=== PATIENT | female | born 1960 | race Two or more races ===

== ENCOUNTER 2016-11-19 17:53 | Emergency (ER) | payer OTHER ==
[2016-11-19 17:59] VITALS: BP 140/86; PULSE 116; TEMP 98.6; BMI 28.3
--- NOTE | 2016-11-19 20:01 | PDOC ---
History of Present Illness - General Chief Complaint: Pain Stated Complaint: HIP PAIN/BACK PAIN/BURNING SENSATION Time Seen by Provider: 11/19/16 19:21 History Source: Patient Exam Limitations: No Limitations - History of Present Illness Initial Comments: 11/19/16 19:[address] butt x 10 years post ?? type of butt injections bilat ; much worse x 4 months with itchy redness Timing/Duration: getting worse Severity: severe Associated Symptoms: reports: rash. denies: chest pain, cough, fever/chills, nausea/vomiting Past History - Past Medical History Allergies/Adverse Reactions: Allergies Allergy/AdvReac Type Severity Reaction Status Date / Time No Known Allergies Allergy Verified 11/19/16 17:59 Home Medications: Ambulatory Orders NK [No Known Home Medication] 11/19/16 Asthma: Yes (takes advair/albuterol) Kidney Stones: Yes - Psycho/Social/Smoking Cessation Hx Suicidal Ideation: No Smoking Status: No Smoking History: Never smoked Number of Cigarettes Smoked Daily: 0 Hx Alcohol Use: No Drug/Substance Use Hx: No Substance Use Type: None Review of Systems - Review of Systems Constitutional: No: Chills, Fever, Malaise HEENTM: No: Symptoms Reported Respiratory: Yes: Symptoms reported. No: Cough Cardiac (ROS): No: Symptoms Reported ABD/GI: Yes: Symptoms Reported : Yes: Symptoms Reported Musculoskeletal: Yes: Symptoms Reported Integumentary: Yes: Symptoms Reported Neurological: Yes: Symptoms reported Endocrine: Yes: Symptoms Reported Hematologic/Lymphatic: No: Symptoms Reported *Physical Exam - Vital Signs Last Vital Signs Temp Pulse Resp BP Pulse Ox 98.6 F 116 H 20 140/86 97 11/19/16 17:55 11/19/16 17:55 11/19/16 17:55 11/19/16 17:55 11/19/16 17:55 - Physical Exam General Appearance: Yes: Appropriately Dressed. No: Apparent Distress HEENT: positive: TMs Normal, Pharynx Normal Neck: positive: Supple. negative: Tender, Rigid Respiratory/Chest: positive: Lungs Clear, Normal Breath Sounds, Respiratory Distress. negative: Chest Tender Cardiovascular: positive: Regular Rhythm, Regular Rate. negative: Murmur ED Treatment Course - RADIOLOGY Radiology Studies Ordered: Category Date Time Status SOFT TISSUE CHEST AND BACK US [US] Stat Ultrasound 11/19/16 19:54 Ordered Medical Decision Making - Medical Decision Making 11/19/16 19:59 endorsed to BELKYS Sorto for follow up post labs and US *DC/Admit/Observation/Transfer Diagnosis at time of Disposition: Soft tissue mass
[2016-11-19 20:05] LABS: BASOPHIL 0.5 % (0-2.0); EOSINOPHIL 3.5 % (0-4.5); MCHC 33.8 g/dl (32.0-36.0); MEAN CELL VOLUME 85.8 fl (80-96); MEAN PLT VOLUME 7.6 fl (7.5-11.1); NEUTROPHILS 54.6 % (42.8-82.8); PLATELET COUNT 228 K/MM3 (134-434); RDW 13.4 % (11.6-15.6); WHITE BLOOD COUNT 6.7 K/mm3 (4.0-10.0)
[2016-11-19 20:35] LABS: CALCIUM 8.5 mg/dL (8.5-10.1); CREATININE 0.7 mg/dL (0.55-1.02)
--- NOTE | 2016-11-19 21:08 | PDOC ---
*Physical Exam - Vital Signs Last Vital Signs Temp Pulse Resp BP Pulse Ox 98.6 F 116 H 20 140/86 97 11/19/16 17:55 11/19/16 17:55 11/19/16 17:55 11/19/16 17:55 11/19/16 17:55 11/19/16 21:07 - Physical Exam Comments: 11/19/16 21:04 She was endorsed to me by Kayode Espinoza CLINICAL NURSING ASSISTANT pending ultrasound of buttocks to rule out fluid or abscess, CMP and CBC with differential pending Chief complaint: Itchy painful reddened raised area on bilateral buttocks 4 month History of present illness: Patient is a 56-year-old female with h/o renal calculi today complaining of it she burning painful raised reddened skin to bilateral buttocks 4 months. Reports that 10 years ago she saw a doctor in [place] that gave her injections in her buttocks to resolve the kidney stones. Patient's small her primary care provider a few months ago Dr. Symone Louis and was referred to see a plastic surgeon for these symptoms however plastic surgeon referred her to see a skilled nursing facility counselor. Patient did not get to see the skilled nursing facility counselor. Patient reports that 2 days ago she had chills. Patient denies any fever. Patient denies adamantly that she ever had injections in her buttocks to enlarge it. Patient said that she tried to return to the doctor in [place] that did her injections in her buttocks at one time however office was closed. 11/19/16 21:07 11/19/16 21:08 11/19/16 21:08 General Appearance: Yes: Appropriately Dressed Respiratory/Chest: positive: Lungs Clear, Normal Breath Sounds. negative: Chest Tender, Respiratory Distress Cardiovascular: positive: Regular Rhythm, Regular Rate, S1, S2 Integumentary: positive: Erythema (raised skin warm to touch confluent over entire b/l buttock extends to upper lateral thighs ) Neurologic: positive: Normal Response, Responsive ED Treatment Course - LABORATORY CBC & Chemistry Diagram: 11/19/16 20:00 11/19/16 20:00 - ADDITIONAL ORDERS Additional order review: Laboratory Results 11/19/16 20:00 Sodium 142 Potassium 4.5 D Chloride 106 Carbon Dioxide 28 Anion Gap 8 BUN 19 H Creatinine 0.7 Random Glucose 109 H D Calcium 8.5 11/19/16 20:00 RBC 4.48 MCV 85.8 MCHC 33.8 RDW 13.4 MPV 7.6 Neutrophils % 54.6 Lymphocytes % 34.0 Monocytes % 7.4 Eosinophils % 3.5 Basophils % 0.5 - Medications Given in the ED: ED Medications Discontinued Medications Generic Name Dose Route Start Last Admin Trade Name Evelina PRN Reason Stop Dose Admin Diphenhydramine HCl 50 mg 11/19/16 19:53 11/19/16 20:06 Benadryl Injection - IM 11/19/16 19:54 50 mg ONCE ONE Administration Medical Decision Making - Medical Decision Making 11/19/16 21:08 Patient is a 56-year-old female with h/o renal calculi today complaining of it she burning painful raised reddened skin to bilateral buttocks 4 months. Reports that 10 years ago she saw a doctor in [place] that gave her injections in her buttocks to resolve the kidney stones. Patient's small her primary care provider a few months ago Dr. Symone Louis and was referred to see a plastic surgeon for these symptoms however plastic surgeon referred her to see a skilled nursing facility counselor. Patient did not get to see the skilled nursing facility counselor. Patient reports that 2 days ago she had chills. Patient denies any fever. Patient denies adamantly that she ever had injections in her buttocks to enlarge it. Patient said that she tried to return to the doctor in [place] that did her injections in her buttocks at one time however office was closed. Laboratory Tests 11/19/16 11/19/16 20:00 20:00 WBC 6.7 RBC 4.48 Hgb 13.0 Hct 38.5 MCV 85.8 MCHC 33.8 RDW 13.4 Plt Count 228 MPV 7.6 Neutrophils % 54.6 Lymphocytes % 34.0 Monocytes % 7.4 Eosinophils % 3.5 Basophils % 0.5 Sodium 142 Potassium 4.5 D Chloride 106 Carbon Dioxide 28 Anion Gap 8 BUN 19 H Creatinine 0.7 Random Glucose 109 H D Calcium 8.5 11/19/16 21:08 raised skin on entire b/l buttock confluent painful/ burning Review does not appear to be infectious there is no elevated white count. We'll have patient follow up with skilled nursing facility counselor for further evaluation with Dr. Morel [phone] 11/19/16 22:23 *DC/Admit/Observation/Transfer Diagnosis at time of Disposition: Soft tissue mass - Discharge Dispostion Disposition: HOME Condition at time of disposition: Stable - Referrals Referrals: Symone Bowens MD [Primary Care Provider] - - Patient Instructions Additional Instructions: Follow-up with skilled nursing facility counselor Dr. Morel at [phone] this week Return to emergency room if any fever or increased redness of area on buttocks. Avoid putting any creams or lotions on buttocks Follow-up with your primary care provider next week also Patient voiced understanding of discharge instructions and all questions were answered - Post Discharge Activity
== END 2016-11-19 22:33 | disposition home or self-care (01) ==
LOC: JERFT 17:53
PROC: 3E023GC Introduction of Other Therapeutic Substance into Muscle, Percutaneous Approach (ICD-10-PCS; principal; 2016-11-19)
DX: R22.2 Localized swelling, mass and lump, trunk (principal)
CPT/HCPCS: 36415; 76604; 80048; 85025; 96372; 99281-25

== ENCOUNTER 2018-04-04 08:19 | Day surgery (SDC) | payer OTHER ==
[2018-04-03 15:26] VITALS: BMI 28.3
[2018-04-04 08:59] LABS: URINE APPEARANCE SLCLOUDY; URINE BILIRUBIN NEGATIVE (<2.0 mg/dL); URINE COLOR YELLOW; URINE GLUCOSE (UA) NEGATIVE (NEGATIVE); URINE KETONE NEGATIVE (NEGATIVE); URINE LEUK ESTERASE NEGATIVE (NEGATIVE); URINE NITRITE NEGATIVE (NEGATIVE); URINE PROTEIN NEGATIVE (NEGATIVE)
--- NOTE | 2018-04-04 09:15 | HP ---
Satellite [facility] - Chief Complaint Chief Complaint: right hand pain - Past Medical History Allergies/Adverse Reactions: Allergies Allergy/AdvReac Type Severity Reaction Status Date / Time No Known Allergies Allergy Verified 11/19/16 17:59 - Current Medications Current Medications: Home Medications Medication Instructions Recorded Hydrochlorothiazide [Hctz -] 12.5 mg PO DAILY 04/03/18 Omeprazole 20 mg PO HS 04/03/18 Hydrocodone/Acetaminophen [[place] 1 each PO Q6H PRN #20 tablet MDD 4 04/04/18 5-325 Tablet] Satellite Physical Exam - Physical Examination Vital Signs: Vital Signs Period Temp Pulse Resp BP Sys/Demarco Pulse Ox Last 24 Hr 98.3 F 87 20 126/69 General Appearance: Well Nourished, Well Developed, Alert & Oriented x3 ENT: Clear Lung: Normal air movement Heart: Regular rate & rhythm Extremities: Other (right hand- + tinels, + phalens, + ttp index a1 babita, nvi EMG + cts) Neurological: Intact, Alert, Oriented Satellite Impression/Plan - Impression/Plan Impression: right cts, right index trigger finger Operative Procedure: right ctr, right index trigger release Date to be Performed: 04/04/18
[2018-04-04 09:20] LABS: INR 1.01 (0.82-1.09); PROTHROMBIN TIME (PATIENT) 11.4 SEC (9.7-13.0)
[2018-04-04 09:23] LABS: ACTIVATED PTT 28.8 SECONDS (26.9-34.4)
[2018-04-04] MEDS ORDERED: ceFAZolin SODIUM 1 GM VIAL IVPB ONE (10:30)
[2018-04-04] MEDS ORDERED: LIDOCAINE HCL 1%, 10 MG/ML (20ML VIAL) INF ONE (10:38)
[2018-04-04] MEDS ORDERED: BUPIVACAINE HCL/PF 0.5% (5MG/ML) 10 ML VIAL IJ ONE (10:38)
--- NOTE | 2018-04-04 12:40 | OP ---
Operative Note - Note: Operative Date: 04/04/18 Pre-Operative Diagnosis: right CTS, index trigger finger Operation: right CTR, index trigger release, tenosynovectomy Post-Operative Diagnosis: Same as Pre-op Surgeon: Glenn Plummer Anesthesiologist/CRIMINOLOGY TEACHER: Meagn Prince Anesthesia: Local, MAC Specimens Removed: tenosynovium Estimated Blood Loss (mls): 0 Drains, Volume Out (mls): 0 Blood Volume Replaced (mls): 0 Fluid Volume Replaced (mls): 500 Operative Report Dictated: Yes
[2018-04-04] MEDS ORDERED: ONDANSETRON 4 MG/2 ML VIAL IVPUSH PRN (12:50)
[2018-04-04] MEDS ORDERED: oxyCODONE HCL 5 MG TABLET PO PRN (12:50)
[2018-04-04 12:59] VITALS: TEMP 98
[2018-04-04] MEDS ORDERED: LACTATED RINGERS SOLUTION 1,000 ML IV SCH (13:00)
[2018-04-04 13:58] VITALS: BP 101/60; PULSE 88
--- NOTE | 2018-04-05 15:19 | SPEC ---
DATE OF OPERATION: 04/04/2018 PREOPERATIVE DIAGNOSIS: Right carpal tunnel syndrome and right index finger trigger finger. POSTOPERATIVE DIAGNOSIS: Right carpal tunnel syndrome and right index finger trigger finger. PROCEDURE: 1. Right carpal tunnel release and tenosynovectomy. 2. Right index finger trigger finger release. SURGEON: Glenn Plummer MD BLEACHER LARD: None. AMMUNITION SPECIALIST: Tracy Dodson CRNA ANESTHESIA: MAC anesthesia, local injection of 15 mL 0.5% Marcaine, 1% lidocaine mixed. DRAINS: None. COMPLICATIONS: None. SPECIMENS: Tenosynovium, right wrist. BLOOD LOSS: None. BLOOD GIVEN: None. FLUID REPLACEMENT: 500 mL Plasmalyte. INDICATION: The patient is a 57-year-old female with a preoperative diagnosis of severe right carpal tunnel syndrome and a severe right index finger trigger finger. After understanding the potential risks, complications, alternatives, and benefits of surgery versus nonsurgical treatment, the patient elected to undergo this procedure. Patient understands she may not get complete relief of her carpal tunnel syndrome symptoms including continuation of the numbness. DESCRIPTION OF PROCEDURE: CARPAL TUNNEL RELEASE: The patient was brought to the operating room, peripheral IV placed and intravenous sedation was given. One gram of intravenous Ancef was given. MAC anesthesia was induced. A tourniquet was applied to the right upper arm and the right upper extremity was prepped and draped in sterile fashion. The entire case was done under 3.8 loupe magnification. A marking pen was utilized to dawn out a longitudinal incision in an already existing skin crease. Twenty mL of 0.5% Marcaine mixed with 1% Lidocaine was injected in and around the surgical incision. The right upper extremity was elevated, exsanguinated with an Esmarch bandage and the tourniquet inflated to 250 mmHg. A No. 15 scalpel blade was utilized to cut down through the skin. Subcutaneous hemostasis was achieved with the bipolar cautery. Dissection was done through the superficial palmar fascia. Self-retaining retractors were placed into the wound. Under direct visualization, the transverse carpal ligament was transected with a No. 15 scalpel blade, exposing the median nerve and the contents of the carpal tunnel. The distal and proximal extents of the release were completed with a Littler scissor and checked with irrigation and my small finger. They were seen to be complete. Limited dissection was done on the radial side of the median nerve and more extensive dissection was done on the ulnar side of the median nerve. The patients nerve was seen to be quite compressed by epineurium and therefore a limited epineurotomy was performed. A Ragnell retractor was used to gently retract the median nerve in a radial direction. The patient had a lot of tenosynovitis and therefore a tenosynovectomy was performed off all 9 flexor tendons. This was passed off the field as tenosynovium right wrist. The floor of the carpal tunnel was checked. There were no abnormal masses or ganglion cysts. The area was copiously irrigated and washed out and closure begun. Undyed 4-0 Vicryl was used to close the deep dermal layer. Final skin reapproximation was done with horizontal mattress 4-0 nylon sutures. The area was then washed and dried, covered with Xeroform, 4x4s, fluffs between the fingers, Webril and a 4-inch plaster roll was utilized to make a volar splint, which was then wrapped with Shantell and Coban. The tourniquet was taken down after a total tourniquet time of 20 minutes. There were no complications during the case. The patient tolerated the procedure well and was brought to the ambulatory recovery room in stable condition. TRIGGER FINGER RELEASE: The patient was brought to the operating room, IV was placed, IV sedation was given. The patient had 1 gram of intravenous Ancef given. A tourniquet was applied to the right upper arm and the right upper extremity was prepped and draped in sterile fashion. The entire case was done under 3.8 loupe magnification. A marking pen was utilized to dawn out a longitudinal incision in an already existing skin crease at the base of the right index finger. A mix of 10 mL of 0.5% Marcaine with 1% Lidocaine was injected in and around the incision. The right upper extremity was elevated, exsanguinated with an Esmarch bandage and the tourniquet inflated to 250 mm of mercury. A No. 15 scalpel blade was utilized to cut down through the skin. Subcutaneous hemostasis was achieved with the bipolar cautery. Additional dissection was done with Littler scissors until I was able to directly visualize the A-1 babita sheath in its entirety. Self-retaining retractors were placed into the wound. A Manderson elevator was used to free up the tissue on the radial side, the ulnar side distally and proximally under better visualization of A-1 babita sheath. Next, using a fresh No. 15 scalpel blade, I excised the central 1/3 of the A-1 babita sheath and passed it off the field as specimen, tendon sheath, ring finger. I then completed the release, both distally and proximally, and brought the FDS and FDP tendons out through the wound with a Ragnell retractor. There were no abnormal points of compression. I was able to move the ring finger without the tendons bunching up at all. The area was then copiously irrigated and washed out. I then checked one more time to make sure there were no abnormal points of compression. None were seen and therefore closure was begun. One stitch using 4-0 Vicryl was used in the deep dermal layer. Skin was reapproximated with 4-0 Nylon sutures in a horizontal mattress fashion. The area was then washed and dried, covered with Xeroform gauze, sterile 4x4s, fluffs between the fingers, Webril and Coban. The tourniquet was taken down after a total tourniquet time of 20 minutes. There were no complications during the case. The patient tolerated the procedure well and was brought to the ambulatory recovery room in stable condition. There were no complications during the case. The patient tolerated the procedure quite well and was brought to the ambulatory recovery room in stable condition. Usha [id number]
== END 2018-04-04 13:55 | disposition home or self-care (01) ==
LOC: JASU-SURG 08:19
PROVIDERS: ATTEND Orthopaedic Surgery
PROC: 0LN70ZZ Release Right Hand Tendon, Open Approach (ICD-10-PCS; principal; 2018-04-04 10:00)
PROC: 01N50ZZ Release Median Nerve, Open Approach (ICD-10-PCS; 2018-04-04 10:00)
DX: G56.01 Carpal tunnel syndrome, right upper limb (principal); M65.321 Trigger finger, right index finger
CPT/HCPCS: 36415; 81003; 85610; 85730; 88304-TC; 94760